=== PATIENT | male | born 1980 | race Caucasian/White ===

== ENCOUNTER 2018-07-26 20:25 | Emergency (ER) | payer OTHER ==
[~2018-07-26] VITALS: Ht 177.8 cm; Wt 74.8 kg
[~2018-07-26 20:25] MED LIST: ALBUTEROL2.5 MG/31; CLARITHROMYCIN500 MG PO; CLEOCIN HCL300 MG PO; IBUPROFEN 600600 M1 PO; MIRTAZAPINE7.5 MG; NON-ASPIRIN EX500 MG PO; NORCO 5-325 TA1 EACH PO; PREDNISONE 20 M20 MG PO; PREDNISONE50 MG PO; PROAIR HFA8.5 GM IH; SENNA-DOCUSATE1 EACH PO; SYMBICORT160 MCG/4.; TESSALON PERLE100 MG PO; ZOFRAN ODT4 MG PO
[2018-07-26 20:33] VITALS: BP 116/78
[2018-07-26] MEDS ORDERED: ALBUTEROL2.5 MG/31 INH (20:45)
[2018-07-26] MEDS ORDERED: PREDNISONE 20 M20 MG PO (20:45)
== END 2018-07-26 20:58 | disposition home or self-care (01) ==
LOC: ER 20:25
DX: J45.901 Unspecified asthma with (acute) exacerbation (principal); J06.9 Acute upper respiratory infection, unspecified; Z88.1 Allergy status to other antibiotic agents; Z88.8 Allergy status to other drugs, medicaments and biological substances

== ENCOUNTER 2018-08-22 22:30 | Emergency (ER) | payer OTHER ==
[~2018-08-22] VITALS: Ht 177.8 cm; Wt 77.1 kg
[~2018-08-22 22:30] MED LIST changes: +ALBUTEROL2.5 MG/31 INH
[2018-08-22 22:36] VITALS: BP 117/83
== END 2018-08-22 23:02 | disposition home or self-care (01) ==
LOC: ER 22:30
DX: M79.672 Pain in left foot (principal); J45.909 Unspecified asthma, uncomplicated; Z88.8 Allergy status to other drugs, medicaments and biological substances; Z88.1 Allergy status to other antibiotic agents